=== PATIENT | female | born 1950 | race Caucasian/White ===

== ENCOUNTER 2017-12-20 15:36 | Emergency (ER) | payer MEDICARE, OTHER ==
[~2017-12-20 15:36] MED LIST: Sodium Chloride 0.9% 1,000 ML BAG ONE
[2017-12-20 16:47] LABS: #Basophils 0.1 thou/uL (0.0-0.2); #Eosinphils 0.2 thou/uL (0.0-0.7); #Lymphocytes 2.1 thou/uL (1.20-3.40); #Monocytes 0.7 thou/uL (0.11-0.59); #Neutrophils 5.1 thou/uL (1.40-6.50); %Basophils 0.9 % (0.0-1.0); %Eosinophils 2.6 % (0.0-10.0); %Lymphocytes 26.3 % (21.0-51.0); %Neutrophils 62.2 % (42.0-75.0); Hemoglobin 12.4 g/dL (12.0-16.0); Mean Corpuscular HGB CONC 32.5 g/dL (32.0-36.0); Mean Corpuscular Hemoglobin 29.1 pg (27.0-31.0); Mean Corpuscular Volume 89.3 fL (78.0-98.0); Mean Platelet Volume 6.5 fL (7.4-10.4); Platelet Count 295 thou/uL (130-400); RBC Distribution Width 11.6 % (11.5-14.5); Red Blood Cell (RBC) Count 4.25 mill/uL (4.20-5.40); White Blood Cell (WBC) Count 8.1 thou/uL (4.8-10.8)
--- NOTE | 2017-12-20 16:50 | RAD ---
CHEST 1 VIEW: Date: 12/20/17 HISTORY: Hyperkalemia. COMPARISON: None. FINDINGS: Normal cardiac silhouette. Pulmonary vessels are within normal limits. Costophrenic angles are clear. Hyperinflation, without consolidation or mass. No pneumothorax or osseous abnormalities. IMPRESSION: No acute cardiopulmonary process. POS: [facility]
[2017-12-20 17:01] LABS: ALT (SGPT) 17 U/L (8-55); AST (SGOT) 12 U/L (5-34); Alkaline Phosphatase 94 U/L (40-150); Anion Gap 12 mmol/L (10-20); BUN (Urea Nitrogen) 24 mg/dL (9.8-20.1); Bilirubin, Total 0.4 mg/dL (0.2-1.2); Calc. Creatinine Clearance 0 mL/min (70-130); Calcium 10.1 mg/dL (7.8-10.44); Carbon Dioxide 23 mmol/L (23-31); Chloride 106 mmol/L (98-107); Estimated GFR-MDRD 49; Globulin 2.9 g/dL (2.4-3.5); Glucose 132 mg/dL (80-115); Potassium 5.4 mmol/L (3.5-5.1); Protein, Total 6.9 g/dL (6.0-8.3); Sodium 136 mmol/L (136-145)
== END 2017-12-20 18:24 | disposition home or self-care (01) ==
LOC: MADERS 15:36
DX: E87.5 Hyperkalemia (principal); I10 Essential (primary) hypertension; E11.9 Type 2 diabetes mellitus without complications; E78.5 Hyperlipidemia, unspecified; F31.9 Bipolar disorder, unspecified; Z79.899 Other long term (current) drug therapy; Z79.82 Long term (current) use of aspirin; Z79.84 Long term (current) use of oral hypoglycemic drugs
CPT/HCPCS: 71045; 80053; 85025; 93005; 94760; 96360; 96361; J7050

== ENCOUNTER 2023-02-26 07:54 | Emergency (ER) | payer MEDICARE ==
[~2023-02-26 07:54] MED LIST changes: +Lactated Ringer's 1,000 ML BAG ONE; -Sodium Chloride 0.9% 1,000 ML BAG ONE
[2023-02-26] MEDS ORDERED: Lactated Ringer's 1,000 ML ONE ×2 (08:33→09:47)
[2023-02-26] MEDS ORDERED: Lidocaine 4% Patch ONE (08:33)
[2023-02-26] MEDS ORDERED: Acetaminophen 325 MG TAB ONE (08:33)
[2023-02-26 08:41] LABS: ALT (SGPT) 30 U/L (8-55); AST (SGOT) 44 U/L (5-34); Albumin 3.9 g/dL (3.4-4.8); Alkaline Phosphatase 81 U/L (40-110); Anion Gap 19 mmol/L (10-20); BUN (Urea Nitrogen) 37 mg/dL (9.8-20.1); Bilirubin, Total 1.1 mg/dL (0.2-1.2); CK (CPK) 855 U/L (29-168); Calc. Creatinine Clearance 0 mL/min (70-130); Calcium 8.9 mg/dL (7.8-10.44); Carbon Dioxide 19 mmol/L (23-31); Chloride 97 mmol/L (98-107); Estimated GFR 30; Glucose 171 mg/dL (80-115); Potassium 4.8 mmol/L (3.5-5.1); Protein, Total 6.9 g/dL (5.8-8.1); Sodium 130 mmol/L (136-145)
[2023-02-26 08:43] LABS: Hematocrit 37.2 % (36.0-47.0); Hemoglobin 12.4 g/dL (12.0-16.0); Mean Corpuscular HGB CONC 33.4 g/dL (32.0-36.0); Mean Corpuscular Hemoglobin 29.9 pg (27.0-31.0); Mean Corpuscular Volume 89.5 fl (78.0-98.0); Mean Platelet Volume 8.4 fL (7.4-10.4); Platelet Count 223 10x3/uL (130-400); RBC Distribution Width 13.2 % (11.5-14.5); Red Blood Cell (RBC) Count 4.16 mill/uL (4.20-5.40); White Blood Cell (WBC) Count 18.1 10x3/uL (4.8-10.8)
[2023-02-26] MEDS ORDERED: Sodium Chloride 0.9% 250 ML 500 ML ONE (09:47)
[2023-02-26] MEDS ORDERED: Vancomycin 1 GM VIAL ONE (09:47)
[2023-02-26] MEDS ORDERED: Sodium Chloride 0.9% 100 ML ONE (09:47)
[2023-02-26 09:57] LABS: Band 15 % (5-11); Lymphocytes 11 % (21-51); MDiff Complete? YES; Monocytes 11 % (0-10); Neutrophil 62 % (42-75); Platelet Adequacy Comment Appears Adequate
[2023-02-26 10:23] LABS: Bilirubin Negative (Negative); Blood, Urine Moderate (Negative); Clarity Slightly Cloudy (Clear); Glucose, Urine (Dipstick) Negative (Negative); Ketone, Urine Negative (Negative); Leukocyte Small (Negative); Nitrite Positive (Negative); Protein, Urine (Dipstick) 100 mg/dL (Neg-Trace); Urobilinogen 0.2 mg/dL (Less than 2)
[2023-02-26 11:10] LABS: INR-International Normal Ratio 1.2; PTT 33.9 sec (22.9-36.1); Prothrombin Time 15.7 sec (12.0-14.7)
[2023-02-26 11:14] LABS: Bacteria/HPF 3+ HPF (None Seen); CAUTI Indications for Culture Fever or rigors; WBC/HPF 21-50 HPF (0-3)
[2023-02-26 11:16] LABS: Urine Culture Reflex Yes Yes
[2023-02-26] MEDS ORDERED: Acetaminophen 500 MG TAB ONE (13:15)
[2023-02-26] MEDS ORDERED: Boostrix 0.5 ML (Tdap) VIAL (>/=7 yrs of age) ONE (13:16)
[2023-02-26 13:36] LABS: Lactic Acid 2.1 mmol/L (0.5-2.2)
[2023-02-26 15:41] LABS: Troponin I 0.014 ng/mL (< 0.028)
== END 2023-02-26 18:20 | disposition short-term general hospital (02) ==
LOC: MADERS 07:54
DX: A41.9 Sepsis, unspecified organism (principal); E11.22 Type 2 diabetes mellitus with diabetic chronic kidney disease; I12.9 Hypertensive chronic kidney disease with stage 1 through stage 4 chronic kidney disease, or unspecified chronic kidney disease; N18.9 Chronic kidney disease, unspecified; N17.9 Acute kidney failure, unspecified; S09.90XA Unspecified injury of head, initial encounter; M62.82 Rhabdomyolysis; N39.0 Urinary tract infection, site not specified; E78.00 Pure hypercholesterolemia, unspecified; Z79.899 Other long term (current) drug therapy; Z79.84 Long term (current) use of oral hypoglycemic drugs; Z79.82 Long term (current) use of aspirin; Z23 Encounter for immunization; W19.XXXA Unspecified fall, initial encounter
CPT/HCPCS: 51701; 70450; 71045; 72125; 72128; 72131; 72170; 80053; 81001; 82550; 83605; 84484; 85025; 85379; 85610; 85730; 87040; 87077; 87086; 87149; 87186; 90471; 90715; 93005; 94760; 96361; 96365; 96366; 96367; 96372; J0457; J1650; J3370; J3490; J7050; J7120